=== PATIENT | female | born 1965 | race Caucasian/White ===

== ENCOUNTER 2018-07-11 11:29 | Day surgery (SDC) | payer OTHER ==
[2018-07-11] MEDS ORDERED: FENTAnyl 50 MCG/ML VIAL (13:26)
[2018-07-11] MEDS ORDERED: MIDAZOLAM 1 MG/ML 2 ML INJ ×2 (13:27)
[2018-07-11] MEDS ORDERED: ONDANSETRON 4 MG INJ (13:43)
== END 2018-07-11 14:38 | disposition home or self-care (01) ==
LOC: GIL 11:29
DX: Z12.11 Encounter for screening for malignant neoplasm of colon (principal); K64.8 Other hemorrhoids
CPT/HCPCS: 45378